=== PATIENT | male | born 1965 | race African-American/Black ===

== ENCOUNTER 2022-01-01 13:01 | Emergency (ER) | payer OTHER ==
[~2022-01-01] VITALS: Ht 165.1 cm; Wt 87.8 kg
[2022-01-01] MEDS ORDERED: FLONASE ALLERG9.9 ML INH (13:27)
[2022-01-01] MEDS ORDERED: AMLODIPINE BESY10 MG PO (13:27)
[2022-01-01] MEDS ORDERED: AMBIEN10 MG PO (13:27)
[2022-01-01] MEDS ORDERED: ONDANSETRON HCL INJ 2MG/ML 2ML 2 MG/ML VIAL IV STA (13:46)
[2022-01-01] MEDS ORDERED: SODIUM CHLORIDE 0.9% 1000ML 1,000 ML ONE (13:56)
[2022-01-01] MEDS ORDERED: KETOROLAC TROMETHAMINE 30 MG/ML VIAL ONE (13:56)
[2022-01-01] MEDS ORDERED: ONDANSETRON HCL INJ 2MG/ML 2ML 2 MG/ML VIAL ONE (13:56)
[2022-01-01] MEDS ORDERED: SODIUM CHLORIDE 0.9% 1000ML 1,000 ML IV ONE (14:00)
[2022-01-01] MEDS ORDERED: KETOROLAC TROMETHAMINE 30 MG/ML VIAL IV STA (14:05)
[2022-01-01] MEDS ORDERED: ACETAMIN-CODE12.5 ML PO (14:27)
== END 2022-01-01 14:41 | disposition home or self-care (01) ==
LOC: FSED 13:23
DX: N20.9 Urinary calculus, unspecified (principal); I10 Essential (primary) hypertension; Z88.2 Allergy status to sulfonamides; Z88.6 Allergy status to analgesic agent; Z91.041 Radiographic dye allergy status; Z79.899 Other long term (current) drug therapy
CPT/HCPCS: 74176; 80053; 81003; 85025; 96374; 96375; 99284; J1885; J2405; J7030